=== PATIENT | female | born 1980 | race Caucasian/White ===

== ENCOUNTER → 2018-09-03 12:01 | Outpatient (CLI) | payer OTHER, SELFPAY | PROVIDERS: PCP Physician Assistant Medical; Visit Provider Physician Assistant Medical | DX: Z12.31 Encounter for screening mammogram for malignant neoplasm of breast (principal); Z53.9 Procedure and treatment not carried out, unspecified reason ==

== ENCOUNTER → 2018-09-07 09:21 | Outpatient (CLI) | payer OTHER, SELFPAY ==
--- NOTE | 2018-09-07 | DI.US.S_ITS ---
LIMITED ULTRASOUND OF RIGHT BREAST: 09/07/2018 CLINICAL: Palpable tender right breast lump. Comparison is made to exams dated: 09/07/2018 mammogram, 08/10/2017 ultrasound, and 08/10/2017 mammogram - [facility]. Real-time and Doppler ultrasound of the right breast 10 o'clock region were performed. Dickson scale images of the real-time examination were reviewed. There is a 0.6 x 0.2 x 0.5 cm oval circumscribed hypoechoic probable complicated cyst in the right breast at 10:00 position 15 cm from the nipple at the site of the patient's reported palpable abnormality with low level internal echogenic foci, mildly increased posterior acoustic enhancement/increased through transmission, and no vascularity on Doppler ultrasound. This may or may not correlate with the possible asymmetry seen on comparison diagnostic mammography. IMPRESSION: PROBABLY BENIGN 0.6 cm probable complicated cyst in the right breast at 10:00 position 15 cm from the nipple at the site of the patient's reported palpable abnormality is probably benign, and may correlate with the possible asymmetry seen on diagnostic mammography. A follow-up mammogram and an ultrasound in 6 months is recommended to demonstrate stability. The patient is advised to monitor her breasts and to return sooner for re-evaluation should she feel anything grow or change. This exam was interpreted at Station ID: [id number]. Electronically Signed By: Chai Domingo M.D. ecl/:09/07/2018 12:46:21 letter sent: Followup Recommended Ultrasound BI-RADS: 3 Probably benign
--- NOTE | 2018-09-07 | DI.MG.S_ITS ---
BILATERAL DIGITAL DIAGNOSTIC MAMMOGRAM 3D/2D: 09/07/2018 CLINICAL: Right breast Lump. Comparison is made to exams dated: 08/10/2017 mammogram and 08/10/2017 [facility]. The tissue of both breasts is heterogeneously dense. This may lower the sensitivity of mammography. There is a triangular marker overlying the skin of the upper outer right breast at middle depth at the site of the patient's reported palpable abnormality. There is a subcentimeter asymmetry seen on initial RMLO view underlying the triangular marker without convincing correlate on RCC view, which subsequently largely resolved on additional spot compression views and tomosynthesis images. There is an asymmetry in the lower inner left breast at middle depth which resolved with additional views and likely represented superimposed benign fibroglandular tissues. IMPRESSION: INCOMPLETE: NEEDS ADDITIONAL IMAGING EVALUATION Possible subcentimeter asymmetry at the site of the patient's reported focal palpable abnormality in the upper outer right breast at middle depth. Targeted diagnostic ultrasound recommended for further evaluation, which will be performed immediately following this exam. This exam was interpreted at Station ID: [id number]. NOTE: For mammograms, a report in lay terms will be sent to the patient. Approximately 15% of breast malignancies will not be visualized mammographically. In the management of a palpable breast mass, a negative mammogram must not discourage biopsy of a clinically suspicious lesion. Electronically Signed By: Chai Domingo M.D. ecl/:09/07/2018 12:42:41 letter sent: Additional Imaging Needed ACR BI-RADS Category 0: Incomplete 3340F
== END ==
PROVIDERS: PCP Physician Assistant Medical; Visit Provider Physician Assistant Medical
DX: R92.8 Other abnormal and inconclusive findings on diagnostic imaging of breast (principal); N64.89 Other specified disorders of breast
CPT/HCPCS: 76642; 77066; G0279

== ENCOUNTER → 2019-02-01 09:18 | Outpatient (CLI) | payer OTHER, SELFPAY ==
--- NOTE | 2019-02-01 | DI.US.S_ITS ---
ULTRASOUND OF RIGHT BREAST: 02/01/2019 CLINICAL: 6 month follow-up of right breast. New palpable lump right breast. Comparison is made to exams dated: 02/01/2019 mammogram, 09/07/2018 ultrasound, 09/07/2018 mammogram, 08/10/2017 ultrasound, and 08/10/2017 mammogram - [facility]. Color flow and real-time ultrasound of the right breast were performed. Dickson scale images of the real-time examination were reviewed. There is a probable 0.9 cm x 0.2 cm x 0.3 cm wider than tall oval complicated cyst in the right breast at 10 o'clock posterior depth 15 cm from the nipple. This oval complicated cyst is hypoechoic with mild posterior acoustic enhancement. This abnormality is not significantly changed. Color flow imaging demonstrates that there is no vascularity present. No abnormalities were seen sonographically in the right breast, specifically at the patient directed area of palpable concern in the posterior upper outer quadrant. IMPRESSION: PROBABLY BENIGN There is a stable 0.9 cm x 0.2 cm x 0.3 cm wider than tall oval probable complicated cyst in the right breast which likely represents a complicated cyst and is probably benign. There is no abnormality seen in the right breast to correspond with the area of clinical concern and palpable abnormality in the upper outer quadrant which likely represent normal fibroglandular tissue, however, clinical followup is recommended for persistent symptoms. A follow-up bilateral mammogram and a right breast ultrasound in 6 months is recommended to demonstrate stability. This exam was interpreted at Station ID: [id number]. Electronically Signed By: Daniel bowman/:02/01/2019 12:14:20 letter sent: Followup Recommended Ultrasound BI-RADS: 3 Probably benign
--- NOTE | 2019-02-01 | DI.MG.S_ITS ---
UNILATERAL RIGHT DIGITAL DIAGNOSTIC MAMMOGRAM 3D/2D SHORT-TERM FOLLOW-UP: 02/01/2019 CLINICAL: Patient returns for a 6 month follow up of the right breast. With new palpable lump. Comparison is made to exams dated: 09/07/2018 ultrasound, 09/07/2018 mammogram, and 08/10/2017 mammogram - [facility]. The tissue of right breast is heterogeneously dense. This may lower the sensitivity of mammography. No significant masses, calcifications, or other findings are seen in the breast. IMPRESSION: INCOMPLETE: NEEDS ADDITIONAL IMAGING EVALUATION There is no abnormality seen in the right breast to correspond with the probably benignt ultrasound finding at 10 o'clock in the posterior depth in the upper outer quadrant evaluated on August 2018 examination, however, ultrasound is recommended which is scheduled to immediately follow this exam. There is no abnormality seen in the right breast to correspond with the area of clinical concern and palpable abnormality indicated by triangular marker in the posterior depth in the upper outer quadrant, however, ultrasound is recommended which is scheduled to immediately follow this exam. This exam was interpreted at Station ID: [id number]. NOTE: For mammograms, a report in lay terms will be sent to the patient. Approximately 15% of breast malignancies will not be visualized mammographically. In the management of a palpable breast mass, a negative mammogram must not discourage biopsy of a clinically suspicious lesion. Electronically Signed By: Daniel Cox M.D. aty/:02/01/2019 12:03:46 ACR BI-RADS Category 0: Incomplete 3340F
== END ==
PROVIDERS: PCP Physician Assistant Medical; Visit Provider Physician Assistant Medical
DX: R92.8 Other abnormal and inconclusive findings on diagnostic imaging of breast (principal); N60.01 Solitary cyst of right breast
CPT/HCPCS: 76642; 77065; G0279

== ENCOUNTER → 2020-09-18 07:53 | Outpatient (CLI) | payer OTHER, SELFPAY ==
--- NOTE | 2020-09-18 | DI.MG.S_ITS ---
BILATERAL DIGITAL SCREENING MAMMOGRAM 3D/2D WITH CAD: 09/18/2020 CLINICAL: Routine screening. Comparison is made to exams dated: 02/01/2019 mammogram, 09/07/2018 mammogram, and 08/10/2017 mammogram - [facility]. The tissue of both breasts is heterogeneously dense. This may lower the sensitivity of mammography. Current study was also evaluated with a Computer Aided Detection (CAD) system. No significant masses, calcifications, or other findings are seen in either breast. There has been no significant interval change. IMPRESSION: NEGATIVE There is no mammographic evidence of malignancy. A 1 year screening mammogram is recommended. This exam was interpreted at Station ID: [id number]. NOTE: For mammograms, a report in lay terms will be sent to the patient. Approximately 15% of breast malignancies will not be visualized mammographically. In the management of a palpable breast mass, a negative mammogram must not discourage biopsy of a clinically suspicious lesion. Electronically Signed By: Boni mojica/paige:09/18/2020 08:52:39 letter sent: Normal Exam ACR BI-RADS Category 1: Negative 3341F
== END ==
PROVIDERS: PCP Physician Assistant Medical; Referring Provider Physician Assistant Medical; Visit Provider Physician Assistant Medical
DX: Z12.31 Encounter for screening mammogram for malignant neoplasm of breast (principal)
CPT/HCPCS: 77063; 77067

== ENCOUNTER → 2021-09-14 09:47 | Outpatient (CLI) | payer OTHER, SELFPAY ==
--- NOTE | 2021-09-14 09:48 | DI.US.S_ITS ---
PROCEDURE: US PELVIC COMPLETE INDICATIONS: PAIN LMP 09/11/2021. TECHNIQUE: Real-time scanning was performed of the pelvic organs, with image documentation. Additional endovaginal scanning was necessary due to incomplete visualization of the adnexal and endometrial structures by transabdominal scanning. COMPARISON: None. FINDINGS: Uterus: Uterus is anteverted and normal in size at 8.8 x 5.5 x 4.1 cm. The myometrium is homogeneous. The endometrium measures 9 mm combined thickness. Cervix is unremarkable. Ovaries: The right ovary measures 3.6 x 3.1 x 1.9 cm, with a calculated ovarian volume of 11 cc. The left ovary measures 3.1 x 2.5 x 2 cm, with a calculated ovarian volume of 8 cc. The ovaries have a normal sonographic appearance. Blood flow seen in both ovaries. Less than 12 follicles can be seen in each ovary. No adnexal masses are seen. Right ovarian simple cyst measuring 2.9 cm. Other: No pathologic free abdominal or pelvic fluid. IMPRESSION: 1. Normal appearance of the uterus. Endometrium measures 9 mm. 2. Normal sonographic appearance of the ovaries. Simple right ovarian cyst measuring 2.9 cm. We strive to produce accurate, complete, and clear reports of imaging services. To assist us in improving patient care, this report was composed using standard report templates and voice recognition software. Therefore, it may contain abnormal punctuation, insertions and/or omissions. Occasional wrong-word or sound-alike substitutions may occur. Though we review the report and make efforts to correct it, we do recommend that the report be read carefully in proper context to recognize any text inaccuracies. Dictated by: Óscar Trammell M.D. on 09/14/2021 at 14:25 Approved by: Óscar Trammell M.D. on 09/14/2021 at 14:29
== END ==
PROVIDERS: PCP Physician Assistant Medical; Referring Provider Obstetrics & Gynecology; Visit Provider Obstetrics & Gynecology
DX: R14.0 Abdominal distension (gaseous) (principal); R10.2 Pelvic and perineal pain; N85.2 Hypertrophy of uterus; N83.201 Unspecified ovarian cyst, right side
CPT/HCPCS: 76830; 76856

== ENCOUNTER → 2021-11-01 08:00 | Outpatient (CLI) | payer OTHER, SELFPAY ==
--- NOTE | 2021-11-01 | DI.MG.S_ITS ---
BILATERAL DIGITAL SCREENING MAMMOGRAM 3D/2D WITH CAD: 11/01/2021 CLINICAL: Routine screening. Comparison is made to exams dated: 09/18/2020 mammogram, 02/01/2019 ultrasound, 02/01/2019 mammogram, and 09/07/2018 mammogram - [facility]. The tissue of both breasts is heterogeneously dense. This may lower the sensitivity of mammography. Current study was also evaluated with a Computer Aided Detection (CAD) system. No significant masses, calcifications, or other findings are seen in either breast. There has been no significant interval change. IMPRESSION: NEGATIVE There is no mammographic evidence of malignancy. A 1 year screening mammogram is recommended. This exam was interpreted at Station ID: [id number]. NOTE: For mammograms, a report in lay terms will be sent to the patient. Approximately 15% of breast malignancies will not be visualized mammographically. In the management of a palpable breast mass, a negative mammogram must not discourage biopsy of a clinically suspicious lesion. Electronically Signed By: Daniel tenorio/paige:11/01/2021 08:43:08 letter sent: Normal Exam ACR BI-RADS Category 1: Negative 3341F
== END ==
PROVIDERS: PCP Physician Assistant Medical; Referring Provider Physician Assistant Medical; Visit Provider Physician Assistant Medical
DX: Z12.31 Encounter for screening mammogram for malignant neoplasm of breast (principal)
CPT/HCPCS: 77063; 77067

== ENCOUNTER 2021-11-22 15:17 | Emergency (ER) | payer OTHER, SELFPAY ==
[2021-11-22 15:20] VITALS: BP 159/70; PULSE 64; RESP 20; TEMP 37.1; O2SAT 100; BMI 33.6
--- NOTE | 2021-11-22 15:33 | DI.CT.S_ITS ---
PROCEDURE: CT ANGIO HEAD AND NECK INDICATIONS: bilateral headache after having bowel movement 2 days ago TECHNIQUE: Pre-contrast 4.5 mm thick sections acquired from the foramen magnum to the vertex. After the administration of intravenous contrast, 1 mm thick sections acquired from the aortic arch through the [place]. Post-contrast 4.5 mm thick sections then re-acquired from the foramen magnum to the vertex. 3-dimensional wsryozm-swaywxhwv-cymqeissyu (MIP) and/or volume rendering reformats were acquired of the central intracranial vasculature and neck separately. COMPARISON: None. FINDINGS: Image quality: Excellent. BRAIN: CSF spaces: Ventricles are normal in size and shape. Basal cisterns are patent. No extra-axial fluid collections. Brain: No midline shift. No intracranial bleeds or masses. Dickson-white matter interface appears intact. Skull and face: Calvarium and facial bones appear intact, without suspicious lesions. Orbits appear normal. Sinuses: Sinuses and mastoids are clear. HEAD CT ANGIOGRAPHY: Anterior circulation: Intracranial internal carotid arteries are normal in size and flow. There is a diminutive right A1 segment, with a corresponding robust left A1 segment. This is considered to be a normal developmental variant of the [place], of typically no clinical consequence. The flow within the paired anterior cerebral arteries is otherwise normal and symmetric. The flow within the middle cerebral arteries is normal and symmetric. The anterior communicating artery is seen. No aneurysms are seen. Posterior circulation: Visualized portions of the vertebral arteries demonstrate normal caliber, and join to form a normal appearing basilar artery. Flow within the posterior cerebral arteries is normal and symmetric. No aneurysms are seen. NECK CT ANGIOGRAPHY: Carotid system: Incidental note is made of a common origin of the right brachiocephalic artery and the left common carotid artery (bovine type arch). This is considered to be a developmental variant of no clinical consequence. The origins of the common carotid arteries appear patent. The common carotid arteries demonstrate normal caliber and courses. The bifurcation regions are both widely patent. The internal carotid arteries demonstrate normal calibers and courses. Posterior circulation: The origins of the vertebral arteries both appear widely patent. The more superior extracranial portions of both vertebral arteries also demonstrate normal courses and calibers. They join to form a normal appearing basilar artery. Soft tissues: Visualized neck soft tissues demonstrate no suspicious abnormalities. Bones: No suspicious bony lesions. Visualized cervical spine appears normally aligned. Mild cervical spine degenerative changes are seen. IMPRESSION: No acute intracranial hemorrhage is seen. No acute intracranial process is seen. Unremarkable intracranial CT angiogram, without an aneurysm seen. Within the arteries of the neck, no hemodynamically significant stenosis can be seen. Any quantitative measurements of stenosis were performed using NASCET criteria. Dictated by: Joaquín Butterfield M.D. on 11/22/2021 at 15:48 Approved by: Joaquín Butterfield M.D. on 11/22/2021 at 15:51
--- NOTE | 2021-11-22 15:36 | ED_ITS ---
HPI - Headache General Chief Complaint: Headache Stated Complaint: NAUSEA HEADACHE Time Seen by Provider: 11/22/21 15:20 Source: patient Mode of arrival: Ambulatory History of Present Illness HPI Narrative: Patient is a 41-year-old female who is here for a bilateral throbbing headache. Symptoms started 2 days ago. It occurred after she had a bowel movement. Was not while she was having the bowel movement. She has tried some over-the- counter medications without improvement. Is having photophobia, sound makes her symptoms worse. She is also having some chills. No fevers. No neck pain. No vision changes. No ringing in her ears. No balance issues. No numbness or tingling extremities. She has had migraines in the past although has never been to the emergency department for them. Related Data Home Medications Medication Instructions Recorded Confirmed multivitamin 1 tab PO DAILY 03/28/18 08/16/21 Previous Rx's Medication Instructions Recorded clobetasol 0.05 % topical ointment See Rx Instructions TOPICAL DAILY 10/16/20 #30 gram estradiol (Estrace) See Rx Instructions VAG DAILY 10/16/20 #42.5 gram Allergies Allergy/AdvReac Type Severity Reaction Status Date / Time No Known Drug Allergies Allergy Verified 11/22/21 15:31 Review of Systems Review of Systems ROS Unobtainable: All systems reviewed & are unremarkable except as noted in HPI and below Patient History Medical History (Updated 11/22/21 @ 17:21 by Haris Martell DO) Fibrocystic disease of right breast History of morbid obesity Lichen sclerosus Surgical History History of 3 sections History of incisional hernia repair History of sleeve gastrectomy History of tonsillectomy and adenoidectomy Family History Mother Cancer Social History marital status: household members: spouse and children Smoking Status: Never smoker Smoking Status: Never smoker alcohol intake frequency: holidays/special occasions only Substance Use Type: does not use Exam Initial Vital Signs Initial Vital Signs: Vital Signs Temperature 98.7 F 11/22/21 15:20 Pulse Rate 64 11/22/21 15:20 Respiratory Rate 20 11/22/21 15:20 Blood Pressure 159/70 H 11/22/21 15:20 Pulse Oximetry 100 11/22/21 15:20 Const General: cooperative, healthy appearing and comfortable Resp Effort & Inspection: normal respiratory effort Auscultation: clear to auscultation bilaterally Cardio Rate: regular rate Rhythm: regular rhythm GI Inspection: normal to inspection Skin General: no rashes or lesions noted Neuro General: patient alert, patient awake, patient oriented x3 and moves all extremities Speech: speech normal Gait: normal gait Motor: muscle tone normal throughout Sensory Exam: no sensory deficits noted Extrem General: normal to inspection and capillary refill normal Psych Appearance: grossly normal and well kempt Scores GCS [place] coma scale eye opening: Spontaneous Cristine coma scale verbal response: Orientated Cristine coma scale motor response: Obey commands [place] coma scale total score: 15 Course Orders Ordered: ED Orders 11/22/21 15:33 CT angio head and neck Stat 11/22/21 15:40 Basic Metabolic Panel Stat Complete Blood Count MAN DIFF Stat Test Serum,Qual Stat Discontinued Medications Acetaminophen (Acetaminophen 325 Mg Tablet) 975 mg PO NOW ONE Stop: 11/22/21 15:33 Last Admin: 11/22/21 15:48 Dose: 975 mg Documented by: GWEN Diphenhydramine HCl (Diphenhydramine 50 Mg/Ml Vial) 25 mg IV NOW ONE Stop: 11/22/21 15:33 Last Admin: 11/22/21 15:48 Dose: 25 mg Documented by: GWEN Sodium Chloride (Normal Saline 0.9%) 1,000 mls @ 1,000 mls/hr IV BOLUS ONE Stop: 11/22/21 16:31 Last Infusion: 11/22/21 17:28 Dose: 0 mls/hr Documented by: Admin: 11/22/21 15:48 Dose: 1,000 mls/hr Documented by: GWEN Metoclopramide HCl (Metoclopramide 10 Mg/2 Ml Inj) 10 mg IV NOW ONE Stop: 11/22/21 15:33 Last Admin: 11/22/21 15:49 Dose: 10 mg Documented by: GWEN Vital Signs Vital signs: Vital Signs - 8 hr 11/22/21 15:20 11/22/21 17:35 Temperature 98.7 F Pulse Rate 64 51 L Respiratory Rate 20 12 Blood Pressure 159/70 H 131/63 Pulse Oximetry 100 100 MDM - Headache Lab Data Attestation: I reviewed the patient's lab results. Result diagrams: 11/22/21 15:40 11/22/21 15:40 Labs: Lab Results 11/22/21 11/22/21 11/22/21 Range/Units 15:40 15:40 15:40 WBC 5.9 (4.5-11.0) X10^3/uL RBC 4.26 (4.0-5.2) X10^6/uL Hgb 12.9 (12.0-16.0) g/dL Hct 37.8 (36-46) % MCV 88.8 (80-100) fL MCH 30.4 (26-34) PG MCHC 34.2 (30-36) % RDW 13.7 (11.6-14.8) % Plt Count 220 (150-400) X10^3/uL Total Counted 100 Seg Neutrophils % 60.0 (38-70) % Lymphocytes % (Manual) 30.0 (25-45) % Monocytes % (Manual) 7.0 (2-11) % Eosinophils % (Manual) 2.0 (2-4) % Basophils % (Manual) 1.0 (0-1) % Neutrophils # (Manual) 3540 (5860-4801) /uL RBC Morphology Normal morphology Sodium 137 (137-145) mmol/L Potassium 3.7 (3.4-5.1) mmol/L Chloride 106 (98-107) mmol/L Carbon Dioxide 28 (22-32) mmol/L BUN 13 (7-17) mg/dL Creatinine 0.65 (0.52-1.04) mg/dL Estimated GFR > 60.0 (>60) mL/min BUN/Creatinine Ratio 20.0 (6-22) Glucose 86 (70-100) mg/dL Calcium 9.6 (8.4-10.2) mg/dL Serum , Qual Negative (Negative) Imaging Data CTA - brain/neck: Radiologist's Impression: [address] [address] [address] Scan Report Signed Patient: Janel Carbajal MR#: [id number] : 1980 Acct:[id number] Age/Sex: 41 / F Date of Service: 11/22/21 Loc: Accession Number: [id number] ?? Procedure: CT angio head and neck Ordering Provider: Haris Martell D.O. PROCEDURE:? CT ANGIO HEAD AND NECK ? INDICATIONS:? bilateral headache after having bowel movement 2 days ago ? TECHNIQUE:? Pre-contrast 4.5 mm thick sections acquired from the foramen magnum to the vert ex.? After the administration of intravenous contrast, 1 mm thick sections acquired from the aortic arch through the [place] of [place].? Post-contrast 4.5 mm thick sections then re- acquired from the foramen magnum to the vertex.? 3-dimensional jrhawpp-aoaieytcd-mygquxhmak (MIP) and/or volume rendering reformats were acquired of the central intracranial vasculature and neck separately. ? COMPARISON:? None. ? FINDINGS:? Image quality:? Excellent.? ? BRAIN:? CSF spaces:? Ventricles are normal in size and shape.? Basal cisterns are patent.? No extra-axial fluid collections.? ? Brain:? No midline shift.? No intracranial bleeds or masses.? Dickson-white matter interface appears intact.? ? Skull and face:? Calvarium and facial bones appear intact, without suspicious lesions.? Orbits appear normal.? ? Sinuses:? Sinuses and mastoids are clear.? ? HEAD CT ANGIOGRAPHY:? Anterior circulation:? Intracranial internal carotid arteries are normal in size and flow.? There is a diminutive right A1 segment, with a corresponding robust left A1 segment.? This is considered to be a normal developmental variant of the [place] of [place], of typically no clinical consequence.? The flow within the paired anterior cerebral arteries is otherwise normal and symmetric.? The flow within the middle cerebral arteries is normal and symmetric.? The anterior communicating artery is seen.? No aneurysms are seen.? ? Posterior circulation:? Visualized portions of the vertebral arteries demonstrate normal caliber, and join to form a normal appearing basilar artery.? Flow within the posterior cerebral arteries is normal and symmetric.? No aneurysms are seen.? ? NECK CT ANGIOGRAPHY:? Carotid system:? Incidental note is made of a common origin of the right brachiocephalic artery and the left common carotid artery (bovine type arch). This is considered to be a developmental variant of no clinical consequence. The origins of the common carotid arteries appear patent.? The common carotid arteries demonstrate normal caliber and courses.? The bifurcation regions are both widely patent.? The internal carotid arteries demonstrate normal calibers and courses.? ? Posterior circulation:? The origins of the vertebral arteries both appear widely patent.? The more superior extracranial portions of both vertebral arteries also demonstrate normal courses and calibers.? They join to form a normal appearing basilar artery.? ? Soft tissues:? Visualized neck soft tissues demonstrate no suspicious abnormalities.? ? Bones:? No suspicious bony lesions.? Visualized cervical spine appears normally aligned.? Mild cervical spine degenerative changes are seen. ? ? ? IMPRESSION:? No acute intracranial hemorrhage is seen.? ? No acute intracranial process is seen.? ? Unremarkable intracranial CT angiogram, without an aneurysm seen. ? Within the arteries of the neck, no hemodynamically significant stenosis can be seen. ? Any quantitative measurements of stenosis were performed using NASCET criteria.? ? ? Dictated by: Joaquín Butterfield M.D. on 11/22/2021 at 15:48 ? ? Approved by: Joaquín Butterfield M.D. on 11/22/2021 at 15:51?? MDM Narrative Medical decision making narrative: Patient does report improvement of her symptoms after medications here in the emergency department. A CTA of her head neck shows no signs of mass, bleed, aneurysm. She has had symptoms for 2 days. She is otherwise neurovascularly intact. I had a discussion with her regarding her symptoms. I did inform her that the recommended next step in this process would be a lumbar puncture given her presentation. We discussed the risks and benefits of this. She has had a spinal in the past for C-sections. She ended up with a very severe 3 week post spinal headache afterwards and after my discussion with her she would like to hold on any lumbar puncture for now. I do have low suspicion for meningitis. Low suspicion for hypertensive emergency. She states she would like to be discharged home and continue to do symptomatic treatment at home with Tylenol and ibuprofen. I do not think this is unreasonable given her presentation today. She was given strict return precautions. She expressed understanding agreement plan. Discharge Plan Departure Patient Disposition: Home Clinical Impression: Headache Instructions: DI for Headache Activity Restrictions/Additional Instructions: You can continue to take Tylenol at home for any headaches. Be sure that you are staying hydrated. Contact your primary doctor for a follow-up. Return to the emergency department for any new or worsening symptoms. Prescriptions: No Action clobetasol 0.05 % ointment See Rx Instructions topical DAILY Qty: 30 1RF Rx Instructions: apply weekly estradiol [Estrace] 0.01 % (0.1 mg/gram) cream See Rx Instructions VAG DAILY Qty: 42.5 3RF Rx Instructions: vaginal daily; Apply dime size amount to external genitalia once daily x4 weeks multivitamin tablet 1 tab PO DAILY 0RF Referrals: Elle Marino PA-C [Primary Care Provider] -
[2021-11-22 15:47] LABS: Hemoglobin 12.9 g/dL (12.0-16.0); White Blood Cell Count 5.9 X10^3/uL (4.5-11.0)
[2021-11-22] MEDS: diphenhydrAMINE 50 MG/ML VIAL 25 MG IV (15:48)
[2021-11-22] MEDS: SODIUM CHLORIDE 0.9% 1,000 ML 1000 ML IV (15:48)
[2021-11-22] MEDS: ACETAMINOPHEN 325 MG TABLET 975 MG PO (15:48)
[2021-11-22] MEDS: METOCLOPRAMIDE 10 MG/2 ML INJ IV (15:49)
[2021-11-22 15:52] LABS: Hematocrit 37.8 % (36-46); Mean Corpuscular HGB Conc 34.2 % (30-36); Mean Corpuscular Hemoglobin 30.4 PG (26-34); Mean Corpuscular Volume 88.8 fL (80-100); Platelet Count 220 X10^3/uL (150-400); Red Blood Cell Count 4.26 X10^6/uL (4.0-5.2); Red Cell Distribution Width 13.7 % (11.6-14.8)
[2021-11-22 16:00] LABS: Blood Urea Nitrogen 13 mg/dL (7-17); Calcium 9.6 mg/dL (8.4-10.2); Carbon Dioxide 28 mmol/L (22-32); Chloride 106 mmol/L (98-107); Estimated Glomerular Filt Rate > 60.0 mL/min (>60); Glucose 86 mg/dL (70-100); HEMOLYSIS < 15 (0-50); Potassium 3.7 mmol/L (3.4-5.1); Sodium 137 mmol/L (137-145)
[2021-11-22 16:18] LABS: Neutrophils Absolute Manual 3540 /uL (3000-5900); RBC Morphology Normal Morphology; Total Cells Counted 100
[2021-11-22 16:26] LABS: Pregnancy Test Serum,Qual Negative (Negative)
[2021-11-22 17:35] VITALS: BP 131/63; PULSE 51; RESP 12; O2SAT 100
== END 2021-11-22 17:35 | disposition home or self-care (01) ==
PROVIDERS: Emergency Provider Emergency Medicine; PCP Physician Assistant Medical
DX: R51.9 Headache, unspecified (principal)
CPT/HCPCS: 36415; 70496; 70498; 80048; 84703; 85025; 96361; 96374; 96375; 99284; J1200; J2765; Q9967

== ENCOUNTER → 2021-12-02 09:24 | Outpatient (CLI) | payer OTHER, SELFPAY ==
[2021-12-02 09:54] LABS: COVID19 -Nasal RAPID Negative (Negative)
== END ==
PROVIDERS: PCP Physician Assistant Medical; Visit Provider Surgery
DX: Z01.812 Encounter for preprocedural laboratory examination (principal); Z20.822 Contact with and (suspected) exposure to COVID-19
CPT/HCPCS: 87635; C9803

== ENCOUNTER 2021-12-03 09:11 | Day surgery (SDC) | payer OTHER, SELFPAY ==
--- NOTE | 2021-12-03 | PATH_ITS ---
[facility] Accession Number: [id number] . 01 Material submitted: . rectum - RECTAL POLYP . 02 Diagnosis: Rectum, Polyp, Biopsy: Hyperplastic polyp. MRV 12/06/2021 1439 Local . 02 Electronically signed: . Dinorah Baez MD, Pathologist NPI- [id number] . 01 Gross description: . RECTAL POLYP: Received in formalin is 1 fragment(s) of field, soft tissue measuring 0.4 x 0.2 x 0.2 cm submitted entirely in 1 cassette(s) /CPE 12/04/2021 0852 Local . 02 Pathologist provided ICD-10: K62.1 . 02 CPT . 961887 Specimen Comment: A courtesy copy of this report has been sent to [phone] Performed at: 01 [facility] [address] [id number] MD Boni Bella MD Phone: [phone] Performed at: 02 [facility] [address] [place], [place] [id number] MD Dinorah Baez MD Phone: [phone]
[2021-12-03 09:32] VITALS: BP 123/78; PULSE 53; RESP 16; TEMP 37.7; O2SAT 99
[2021-12-03 09:35] VITALS: BMI 33.6
[2021-12-03] MEDS: LACTATED RINGERS 1,000 ML 42 ML IV (09:54)
--- NOTE | 2021-12-03 10:44 | PM.HP.1 ---
History of Present Illness History of Present Illness Date Patient Seen: 12/03/21 Time Patient Seen: 10:45 Chief complaint: [facility] [place]arrative: Lichen sclerosis. Asked by her specialist to get a diagnostic colonoscopy. No family history for colon cancer. Does have new pain with straining and aggravation of the sciatica Patient History Medical History Fibrocystic disease of right breast History of morbid obesity Lichen sclerosus Surgical History History of 3 sections History of incisional hernia repair History of sleeve gastrectomy History of tonsillectomy and adenoidectomy Family & Social History Family History Mother Cancer Social History: household members spouse,children Tobacco & Substance use: Smoking Status Never smoker alcohol intake current alcohol intake frequency holiday/special occasion Substance Use Type does not use Meds Home Medications and Allergies Home Medications Medication Instructions Recorded Confirmed Type multivitamin 1 tab PO DAILY 03/28/18 12/03/21 History clobetasol 0.05 % topical ointment See Rx Instructions TOPICAL DAILY 10/16/20 12/03/21 Rx #30 gram estradiol (Estrace) See Rx Instructions VAG DAILY 10/16/20 12/03/21 Rx #42.5 gram Allergies Allergy/AdvReac Type Severity Reaction Status Date / Time No Known Drug Allergies Allergy Verified 12/03/21 09:30 Review of Systems Review of Systems ROS: Yes All systems reviewed with the patient and are negative except as otherwise documented Exam Vital Signs (past 8 hours): - 12/03/21 09:32 Temperature 99.9 F H Pulse Rate 53 L Respiratory Rate 16 Blood Pressure 123/78 Pulse Oximetry 99 Oxygen Delivery Method Room Air Const General: cooperative and healthy appearing [facility] Head: normal to inspection, normocephalic and atraumatic Eyes Sclera: sclerae normal and scleral abnormality Neck Neck: normal visual inspection and trachea midline Chest Chest: normal inspection of the chest Resp Effort & Inspection: normal respiratory effort and able to speak in complete sentences Cardio Rate: regular rate Rhythm: regular rhythm GI Inspection: normal to inspection Palpation: soft Skin General: no rashes or lesions noted and turgor normal Neuro General: patient alert, patient awake and patient oriented x3 Extrem General: normal to inspection and full ROM Psych Appearance: grossly normal Mental Status: mental status grossly normal Affect: normal affect Judgment: judgment good Assessment & Plan Assessment & Plan narrative: Lichen sclerosis. Diagnostic colonoscopy COVID-19 COVID-19 status: Negative Time Spent With Patient Critical Care time: I spent a total of [] minutes of critical care time on this patient's care today; this time is exclusive of procedural time.
[2021-12-03] MEDS: fentaNYL 250 MCG/5 ML INJ IV (11:16)
[2021-12-03] MEDS: MIDAZOLAM 5 MG/5 ML VIAL IV (11:17)
--- NOTE | 2021-12-03 11:18 | PM.OP.COLON ---
Operative Date/Time/Diagnoses Date of procedure: 12/03/21 Time of procedure: 11:18 Pre-op diagnosis: Lichen sclerosis Post-op diagnosis: same Procedure & Clinicians Study performed: Colonoscopy with moderate sedation and cold forceps biopsy Same procedure as scheduled: Yes Indications: Lichen sclerosis Surgeon: Anny Barrientos Procedure Notes SCOAP/Timeout: Done Procedure in detail: Preop diagnosis: Lichen sclerosis Postop diagnosis: Same Operative procedure: Colonoscopy with moderate sedation and cold forceps biopsy Surgeon: Eladia Barrientos MD Findings: Single polyp in the rectum that appears benign but taken for biopsy with the cold forceps. Otherwise normal colon Anesthetic: 12 mg Versed 250 mcg fentanyl recommend next scope to be with anesthesia Procedure: Patient placed in a lateral position. Rectal exam is performed showing increased tone no masses. Colonoscope inserted in the rectum advanced to ileocecal valve with minimal difficulty. Insufflation and extraction of the scope and the above findings. Retroflex was included in the rectum. Impression: Single polyp in the rectum appearing benign, taken with cold forceps biopsy measuring approximately 3 x 3 mm. Otherwise normal colon Plan: Repeat colonoscopy depending on pathology Sedation minutes: 20 Findings: polyp(s) Specimen(s): other (Rectal polyp 3mm x 3mm) Complications: none Impression: Single polyp in rectum. Post-procedure Recommendations: Will call with biopsy results Plan for aftercare: Repeat depends on patholoyg Follow up: as needed Disposition: PACU
[2021-12-03 11:22] VITALS: BP 118/70; PULSE 58; RESP 16; O2SAT 98
[2021-12-03 11:24] VITALS: BP 137/64; PULSE 52; RESP 16; TEMP 36.6; O2SAT 98
[2021-12-03 11:27] VITALS: BP 118/65; PULSE 51; RESP 16; O2SAT 100
[2021-12-03 11:32] VITALS: BP 129/66; PULSE 50; RESP 16; O2SAT 98
[2021-12-03 11:37] VITALS: BP 117/55; PULSE 49; RESP 16; O2SAT 100
== END 2021-12-03 12:11 | disposition home or self-care (01) ==
PROVIDERS: PCP Physician Assistant Medical; Referring Provider Surgery; Visit Provider Surgery
PROC: 0DJD8ZZ Inspection of Lower Intestinal Tract, Via Natural or Artificial Opening Endoscopic (ICD-10-PCS; CPT 45378; principal; 2021-12-03 10:45)
DX: L90.0 Lichen sclerosus et atrophicus (principal); K62.1 Rectal polyp
CPT/HCPCS: 45380; 99152; J2250; J3010

== ENCOUNTER → 2023-05-25 12:45 | Outpatient (CLI) | payer OTHER, SELFPAY ==
--- NOTE | 2023-05-25 | DI.MG.S_ITS ---
BILATERAL DIGITAL SCREENING MAMMOGRAM 3D/2D WITH CAD: 05/25/2023 CLINICAL: Routine screening. Comparison is made to exams dated: 11/01/2021 mammogram, 09/18/2020 mammogram, 09/07/2018 mammogram, and 08/10/2017 mammogram - [facility]. Both breasts are heterogeneously dense, which may obscure small masses (category c / 51-75% glandular tissue). Current study was also evaluated with a Computer Aided Detection (CAD) system. No significant masses, calcifications, or other findings are seen in either breast. There has been no significant interval change. IMPRESSION: NEGATIVE There is no mammographic evidence of malignancy. A 1 year screening mammogram is recommended. Based on the Tyrer Cuzick model (a risk assessment model) the patient's lifetime risk is 10.4% and her 10 year risk is 1.9%. According to the ACR, ACS, and NCCN guidelines, an annual breast MRI exam along with mammogram is recommended if the patient's lifetime risk is 20% or greater. This exam was interpreted at Station ID: [id number]. NOTE: For mammograms, a report in lay terms will be sent to the patient. Approximately 15% of breast malignancies will not be visualized mammographically. In the management of a palpable breast mass, a negative mammogram must not discourage biopsy of a clinically suspicious lesion. Electronically Signed By: Óscar johansen/paige:05/25/2023 13:33:30 letter sent: Normal Exam ACR BI-RADS Category 1: Negative [id number]
== END ==
PROVIDERS: PCP Physician Assistant Medical; Referring Provider Physician Assistant Medical; Visit Provider Physician Assistant Medical
DX: Z12.31 Encounter for screening mammogram for malignant neoplasm of breast (principal)
CPT/HCPCS: 77063; 77067

== ENCOUNTER → 2024-07-20 07:42 | Outpatient (CLI) | payer OTHER, SELFPAY ==
--- NOTE | 2024-07-20 | DI.MG.S_ITS ---
BILATERAL DIGITAL SCREENING MAMMOGRAM 3D/2D WITH CAD: 07/20/2024 CLINICAL: Routine screening. Comparison is made to exams dated: 05/25/2023 mammogram, 11/01/2021 mammogram, and 09/18/2020 mammogram - [facility]. The breasts are heterogeneously dense, which may obscure small masses (category c / 51-75% glandular tissue). Current study was also evaluated with a Computer Aided Detection (CAD) system. No significant masses, calcifications, or other findings are seen in either breast. There has been no significant interval change. IMPRESSION: NEGATIVE There is no mammographic evidence of malignancy. A 1 year screening mammogram is recommended. Based on the Tyrer Cuzick model (a risk assessment model) the patient's lifetime risk is 10.4% and her 10 year risk is 2.0%. According to the ACR, ACS, and NCCN guidelines, an annual breast MRI exam along with mammogram is recommended if the patient's lifetime risk is 20% or greater. This exam was interpreted at Station ID: [id number]. NOTE: For mammograms, a report in lay terms will be sent to the patient. Approximately 15% of breast malignancies will not be visualized mammographically. In the management of a palpable breast mass, a negative mammogram must not discourage biopsy of a clinically suspicious lesion. Electronically Signed By: Radha zambrano/paige:07/22/2024 08:57:42 letter sent: Normal Exam ACR BI-RADS Category 1: Negative
== END ==
LOC: MAMMO 07:43
PROVIDERS: PCP Physician Assistant Medical; Referring Provider Physician Assistant Medical; Visit Provider Physician Assistant Medical
DX: Z12.31 Encounter for screening mammogram for malignant neoplasm of breast (principal); R92.333 Mammographic heterogeneous density, bilateral breasts
CPT/HCPCS: 77063; 77067